=== PATIENT | male | born 1995 | race Caucasian/White ===

== ENCOUNTER 2024-02-08 23:56 | Emergency (ER) | payer SELFPAY | END 2024-02-09 00:20 | disposition left against medical advice (07) | LOC: ER 02-09 00:09 | DX: G40.909 Epilepsy, unspecified, not intractable, without status epilepticus (principal); Z53.21 Procedure and treatment not carried out due to patient leaving prior to being seen by health care provider ==

== ENCOUNTER 2024-11-02 00:43 | Emergency (ER) | payer SELFPAY ==
[~2024-11-02] VITALS: Ht 170.2 cm; Wt 78.0 kg
[2024-11-02 00:47] VITALS: BP 153/99; PULSE 114; RESP 16; TEMP 37.1; O2SAT 96
== END 2024-11-02 00:50 | disposition left against medical advice (07) ==
LOC: ER 00:48
DX: R56.9 Unspecified convulsions (principal); R03.0 Elevated blood-pressure reading, without diagnosis of hypertension
CPT/HCPCS: 99283